=== PATIENT | female | born 1980 | race African-American/Black ===

== ENCOUNTER 2016-11-20 08:38 | Emergency (ER) | payer BC ==
[~2016-11-20] VITALS: Ht 157.5 cm; Wt 79.8 kg
[~2016-11-20 08:38] MED LIST: CEPH-264 PO; METO10TA81 PO
[2016-11-20 09:15] LABS: BASO % 0 % (0-3); EOS % 1 % (0-3); HEMATOCRIT 37.4 % (36.0-47.0); HEMOGLOBIN 12.1 g/dL (12.0-15.5); LYMPH # 2.2 x10^3/uL (1.0-4.8); LYMPH % 29 % (24-48); MEAN CORPUSCULAR HEMOGLOBIN 27 pg (25-35); MEAN CORPUSCULAR HGB CONC 32 g/dL (31-37); MEAN CORPUSCULAR VOLUME 85 fL (79-100); MONO % 5 % (0-9); NEUT % 64 % (31-73); PLATELET COUNT 202 x10^3/uL (140-400); RED BLOOD COUNT 4.42 x10^6/uL (3.50-5.40); RED CELL DISTRIBUTION WIDTH 14.6 % (11.5-14.5); WHITE BLOOD COUNT 7.6 x10^3/uL (4.0-11.0)
--- NOTE | 2016-11-20 09:28 | PHYS DOC ---
Past Medical History Past Medical History: STD, Other Additional Past Medical Histor: [place] Past Surgical History: Other Additional Past Surgical Histo: dental extraction Alcohol Use: None Drug Use: None Adult General Chief Complaint Chief Complaint: VAGINAL BLEEDING HPI HPI Patient is a 36 year old female who presents with vaginal bleeding and abdominal cramping. Pt is 6 weeks from vaginal delivery, no complication other than episiotomy. Patient started being intense cramps in her lower abdomen earlier today passing large clots. She's been having bleeding since her delivery, initially stating her period started November 05 but then later stating that she had leading since her delivery in September. Patient is not currently breast-feeding, her OB doctor was Dr. Ava Cervantes at [facility]. Review of Systems Review of Systems Constitutional: Denies fever or chills [] Eyes: Denies change in visual acuity, redness, or eye pain [] HENT: Denies nasal congestion or sore throat [] Respiratory: Denies cough or shortness of breath [] Cardiovascular: No additional information not addressed in HPI [] GI: Denies abdominal pain, nausea, vomiting, bloody stools or diarrhea [] : Denies dysuria or hematuria [] Musculoskeletal: Denies back pain or joint pain [] Integument: Denies rash or skin lesions [] Neurologic: Denies headache, focal weakness or sensory changes [] Current Medications Current Medications Current Medications Medications (Trade) Dose Ordered Sig/Sivakumar Start Time Stop Time Status Last Admin Dose Admin Ketorolac Tromethamine (Toradol) 30 mg 1X ONCE 11/20/16 09:30 11/20/16 09:31 DC 11/20/16 10:19 30 MG Morphine Sulfate 4 mg 1X ONCE 11/20/16 11:30 11/20/16 11:31 DC 11/20/16 11:34 4 MG Allergies Allergies Allergies Coded Allergies Type Severity Reaction Last Updated Verified metronidazole Adverse Reaction Intermediate nausea and vomiting 04/08/16 Yes Physical Exam Physical Exam Constitutional: Well developed, well nourished, no acute distress, non-toxic appearance. [] HENT: Normocephalic, atraumatic, bilateral external ears normal, oropharynx moist, no oral exudates, nose normal. [] Eyes: PERRLA, EOMI, conjunctiva normal, no discharge. [] Neck: Normal range of motion, no tenderness, supple, no stridor. [] Cardiovascular:Heart rate regular with regular rhythm, no murmur [] Lungs & Thorax: Bilateral breath sounds clear to auscultation, no wheeze or crackles Abdomen: Bowel sounds normal, soft, minimal lower abd tender to palpation without guarding or peritoneal signs. Pelvic: clots in vault, cleared and does not immediately reaccumulate, manual exam unable to palpate the cervical os, no CMT Skin: Warm, dry, no erythema, no rash. [] Back: No tenderness, no CVA tenderness. [] Extremities: No tenderness, no cyanosis, no clubbing, ROM intact, no edema. [] Neurologic: Alert and oriented X 3, normal motor function, normal sensory function, no focal deficits noted. [] Psychologic: Affect normal, judgement normal, mood normal. [] Current Patient Data Vital Signs Vital Signs Date Time Temp Pulse Resp B/P (MAP) Pulse Ox O2 Delivery O2 Flow Rate FiO2 11/20/16 12:26 67 18 114/60 (78) 98 Room Air 11/20/16 09:00 99.9 99.9 Lab Values Laboratory Tests Test 11/20/16 08:59 11/20/16 09:05 POC Urine HCG, Qualitative Hcg positive (Negative) White Blood Count 7.6 x10^3/uL (4.0-11.0) Red Blood Count 4.42 x10^6/uL (3.50-5.40) Hemoglobin 12.1 g/dL (12.0-15.5) Hematocrit 37.4 % (36.0-47.0) Mean Corpuscular Volume 85 fL (79-100) Mean Corpuscular Hemoglobin 27 pg (25-35) Mean Corpuscular Hemoglobin Concent 32 g/dL (31-37) Red Cell Distribution Width 14.6 % (11.5-14.5) H Platelet Count 202 x10^3/uL (140-400) Neutrophils (%) (Auto) 64 % (31-73) Lymphocytes (%) (Auto) 29 % (24-48) Monocytes (%) (Auto) 5 % (0-9) Eosinophils (%) (Auto) 1 % (0-3) Basophils (%) (Auto) 0 % (0-3) Neutrophils # (Auto) 4.9 x10^3uL (1.8-7.7) Lymphocytes # (Auto) 2.2 x10^3/uL (1.0-4.8) Monocytes # (Auto) 0.4 x10^3/uL (0.0-1.1) Eosinophils # (Auto) 0.1 x10^3/uL (0.0-0.7) Basophils # (Auto) 0.0 x10^3/uL (0.0-0.2) Laboratory Tests 11/20/16 09:05 EKG EKG [] Radiology/Procedures Radiology/Procedures Pelvic US:Pelvic ultrasound to include transabdominal and transvaginal imaging Clinical history: 6 weeks post with vaginal bleeding. Technique: Using the distended urinary bladder as a sonographic window, a real-time ultrasound examination of the pelvis was performed. Additionally in attempt to better evaluate the uterus and adnexa, a transvaginal ultrasound study was performed. Multiple images were obtained. Findings: The uterus is within normal limits in size given the patient's history. It measures 11.6 x 7.8 x 6.1 cm in longitudinal, transverse, and AP dimensions. The endometrial echo complex is thickened and heterogeneous measuring 2.9 cm in thickness. No focal abnormality of the uterus is seen. Neither ovary is visualized. No adnexal mass is seen. No free fluid is noted. Impression: The endometrial echo complex is thickened and heterogeneous which raises the possibility of retained products. Course & Med Decision Making Course & Med Decision Making Pertinent Labs and Imaging studies reviewed. (See chart for details) Patient was given IV Toradol, she is not nursing, IV fluids. Patient's hemoglobin is within normal limits, ultrasound as above. I contacted patient's OB doctor, Dr. Ava Cervantes, her partner returned the call, Dr. Graham. I reviewed the ultrasound results with her, as patient is stable at this time with normal vital signs and no active hemorrhage, Dr. Graham recommends outpatient follow-up with strict return precautions. I counseled patient on this and the need to follow up immediately if she has worsening symptoms. She voiced understanding and was discharged in stable condition. Few [place] along with ibuprofen prescription was given. Counseled on not driving while taking. Dragon Disclaimer Dragon Disclaimer This electronic medical record was generated, in whole or in part, using a voice recognition dictation system. Departure Departure Impression: Primary Impression: Abnormal vaginal bleeding Disposition: HOME, SELF-CARE Condition: STABLE Referrals: NO PCP (PCP) Scripts Hydrocodone/Apap 5-325 (NORCO 5-325 TABLET) 1 Each Tablet 1 EACH PO PRN Q6HRS Y for breakthrough pain, #5 as needed for pain Prov: YON RED MD 11/20/16 YON RED MD Nov 20, 2016 09:28
[2016-11-20] MEDS ORDERED: KETOROLAC TROMETHAMINE 30 MG/ML INJ. IV ONE (09:30)
--- NOTE | 2016-11-20 10:57 | RAD ---
Pelvic ultrasound to include transabdominal and transvaginal imaging 11/20/2016 Clinical history: 6 weeks post with vaginal bleeding. Technique: Using the distended urinary bladder as a sonographic window, a real-time ultrasound examination of the pelvis was performed. Additionally in attempt to better evaluate the uterus and adnexa, a transvaginal ultrasound study was performed. Multiple images were obtained. Findings: The uterus is within normal limits in size given the patient's history. It measures 11.6 x 7.8 x 6.1 cm in longitudinal, transverse, and AP dimensions. The endometrial echo complex is thickened and heterogeneous measuring 2.9 cm in thickness. No focal abnormality of the uterus is seen. Neither ovary is visualized. No adnexal mass is seen. No free fluid is noted. Impression: The endometrial echo complex is thickened and heterogeneous which raises the possibility of retained products.
[2016-11-20] MEDS ORDERED: MORPHINE SULFATE 4 MG/ML DISP.SYRIN. IV ONE (11:30)
[2016-11-20 12:26] VITALS: BP 114/60
[2016-11-20] MEDS ORDERED: HYDR-971 PO (12:41)
== END 2016-11-20 13:14 | disposition home or self-care (01) ==
LOC: ER 08:38
DX: O72.1 Other immediate postpartum hemorrhage (principal); N93.9 Abnormal uterine and vaginal bleeding, unspecified; Z88.8 Allergy status to other drugs, medicaments and biological substances
CPT/HCPCS: 36415; 76830; 76856; 81025; 85027; 96374; 96375; 99285; J1885; J2270

== ENCOUNTER → 2019-03-23 | Outpatient (CLI) | payer OTHER ==
[~2019-03-23] MED LIST changes: +HYDR-3164 PO
--- NOTE | 2019-03-23 18:03 | KCIC ---
KNEE LEFT 3V History: Pain after kneeling on a hard surface Comparison: None. Findings: 3 views of the left knee are submitted. No acute fracture, dislocation, joint effusion is identified. Joint spaces are maintained. Impression: 1. No acute osseous abnormality is identified of the left knee. Electronically signed by: Holden Lopez MD (03/23/2019 6:00 PM) [id number]
== END | disposition home or self-care (01) ==
LOC: KCIC 14:22
PROVIDERS: ATTEND Nurse Practitioner
DX: M25.562 Pain in left knee (principal)
CPT/HCPCS: 73562